=== PATIENT | male | born 1965 | race Asian ===

== ENCOUNTER 2025-01-18 19:02 | Emergency (ER) | payer MEDICAID ==
[2025-01-18] MEDS ORDERED: Boostrix 0.5 ML (Tdap) VIAL (>/=7 yrs of age) ONE (19:42)
== END 2025-01-18 20:18 | disposition home or self-care (01) ==
LOC: CSHERS 19:02
DX: S70.312A Abrasion, left thigh, initial encounter (principal); E11.9 Type 2 diabetes mellitus without complications; I25.10 Atherosclerotic heart disease of native coronary artery without angina pectoris; I25.2 Old myocardial infarction; Z23 Encounter for immunization; Z79.01 Long term (current) use of anticoagulants; Z79.84 Long term (current) use of oral hypoglycemic drugs; W22.8XXA Striking against or struck by other objects, initial encounter
CPT/HCPCS: 90471; 90715